=== PATIENT | female | born 1990 | race Caucasian/White ===

== ENCOUNTER → 2024-02-08 08:17 | Outpatient (REF) | payer BC, SELFPAY | LOC: RAD 08:17 | PROVIDERS: ATTENDING PHYSICIAN Internal Medicine Rheumatology; FAMILY PHYSICIAN Internal Medicine | DX: M25.579 Pain in unspecified ankle and joints of unspecified foot (principal); M25.549 Pain in joints of unspecified hand; M06.00 Rheumatoid arthritis without rheumatoid factor, unspecified site | CPT/HCPCS: 73110; 73130; 73610; 73630; 76882 ==

== ENCOUNTER → 2024-05-28 15:02 | Outpatient (REF) | payer BC, SELFPAY | LOC: PAVMRI 15:02 | PROVIDERS: ATTENDING PHYSICIAN Nurse Practitioner; FAMILY PHYSICIAN Internal Medicine | DX: M54.12 Radiculopathy, cervical region (principal) | CPT/HCPCS: 72141 ==